=== PATIENT | male | born 1965 | race Caucasian/White ===

== ENCOUNTER 2018-07-04 13:17 | Emergency (ER) | payer OTHER ==
[~2018-07-04] VITALS: Ht 177.8 cm; Wt 138.3 kg
--- OUTSIDE RECORDS SUMMARY | ~2018-07-04 | XMS | Clinical Summary ---
Demographics + + + | Address | [address] | | | [place] [address] | + + + | Home Phone | | + + + | Preferred Language | Unknown | + + + | Marital Status | | + + + | Scientology Affiliation | Unknown | + + + | Race | Unknown | + + + | Ethnic Group | Unknown | + + + Author + + + | Author | [facility] | | | and [place] | + + + | Organization | [facility] | | | and [place] | + + + | Address | Unknown | + + + | Phone | Unavailable | + + + Support + + +---------+ + | Name | Relationship | Address | Phone | + + +---------+ + | JOSE BYRD | ECON | Unknown | | + + +---------+ + Care Team Providers + +------+ + | Care Heavy Machinery Assembler Name | Role | Phone | + +------+ + | Javi Soto DO | PP | | + +------+ + Allergies No Known Allergies Medications + + + +---------+------+------+-------+ | Medication | Sig | Dispensed | Refills | Star | End | Statu | | | | | | t | Date | s | | | | | | Date | | | + + + +---------+------+------+-------+ | ibuprofen (ADVIL, | Take 800-1,000 mg by | | 0 | | | Activ | | MOTRIN) 200 mg | mouth every 8 hours | | | | | e | | tablet | as needed for Pain. | | | | | | + + + +---------+------+------+-------+ | meloxicam (MOBIC) | Take 1 tablet by | 30 | 1 | 04/08 | | Activ | | 15 mg | mouth Daily as | tablet | | 10/28 | | e | | tabletIndications: | needed for Pain. | | | 19 | | | | Internal derangement | | | | | | | | of left knee | | | | | | | + + + +---------+------+------+-------+ Active Problems No known active problems Encounters +--------+ + + + + | Date | Type | Specialty | Care Team | Description | +--------+ + + + + | 05/13/ | Telephone | | Javi Soto | Knee Pain | | 2019 | | | E, DO | | +--------+ + + + + | 05/02/ | Telephone | | Javi Soto | Knee Pain (Status | | 2018 | | | E, DO | Update) | +--------+ + + + + | 04/26/ | Office | | Javi Soto | Internal derangement | | 2018 | Visit | | E, DO | of left knee | | | | | | (Primary Dx); Grief; | | | | | | Class 3 severe | | | | | | obesity with body | | | | | | mass index (BMI) of | | | | | | 45.0 to 49.9 in | | | | | | adult, unspecified | | | | | | obesity type, | | | | | | unspecified whether | | | | | | serious comorbidity | | | | | | present (HCC) | +--------+ + + + + | 04/22/ | Telephone | | Javi Soto | Appointment Question | | 2018 | | | E, DO | | +--------+ + + + + from Last 3 Months Immunizations + + + + | Name | Dates Previously Given | Next Due | + + + + | INFLUENZA PF 4Y OR | 01/11/2017 | | | >,QUAD DERIVED FROM | | | | TISS-CULT | | | + + + + | TDAP, (ADOL/ADULT) | 02/14/2016, 12/05/2013 | | + + + + Family History + + +------+ + | Medical History | Relation | Name | Comments | + + +------+ + | Heart disease | Maternal | | | | | Grandfath | | | | | er | | | + + +------+ + | Hypertension | Maternal | | | | | Grandfath | | | | | er | | | + + +------+ + | Emphysema | Mother | | | + + +------+ + | Tobacco Use | Mother | | | + + +------+ + + +------+ + + | Relation | Name | Status | Comments | + +------+ + + | Father | | | | + +------+ + + | Maternal Grandfather | | | | + +------+ + + | Maternal Grandmother | | | | + +------+ + + | Mother | | | | + +------+ + + | Paternal Grandfather | | | | + +------+ + + | Paternal Grandmother | | | | + +------+ + + Social History + +-------+ +--------+------+ | Tobacco Use | Types | Packs/Day | Years | Date | | | | | Used | | + +-------+ +--------+------+ | Never Smoker | | | | | + +-------+ +--------+------+ + +---+---+---+ | Smokeless Tobacco: | | | | | Never Used | | | | + +---+---+---+ + + | Tobacco Cessation: Counseling Given: No | + + + + +---------+ + | Alcohol Use | Drinks/We | oz/Week | Comments | | | ek | | | + + +---------+ + | No | 0 | 0.0 | | | | Glasses | | | | | of wine | | | | | 0 Cans of | | | | | beer 0 | | | | | Shots of | | | | | liquor 0 | | | | | Standard | | | | | drinks | | | | | or | | | | | equivalen | | | | | t | | | + + +---------+ + + + + | Sex Assigned at | Date Recorded | | | | + + + | Not on file | | + + + + + + + | Job Start Date | Occupation | Industry | + + + + | Not on file | Not on file | Not on file | + + + + + + + + | Travel History | Travel Start | Travel End | + + + + + + | No recent travel history available. | + + Last Filed Vital Signs + + + + | Vital Sign | Reading | Time Taken | + + + + | Blood Pressure | 148/88 | 04/26/2018 1057 PDT | + + + + | Pulse | 81 | 04/26/20187 PDT | + + + + | Temperature | - | - | + + + + | Respiratory Rate | 18 | 04/26/20181056 PDT | + + + + | Oxygen Saturation | 93% | 04/26/20181056 PDT | + + + + | Inhaled Oxygen | - | - | | Concentration | | | + + + + | Weight | 141.6 kg (312 lb 3.2 | 04/26/20181056 PDT | | | oz) | | + + + + | Height | 175 cm (5' 8.9") | 04/26/20181056 PDT | + + + + | Body Mass Index | 46.24 | 04/26/2018 1057 PDT | + + + + Plan of Treatment +--------+---------+ + + + | Date | Type | Specialty | Care Team | Description | +--------+---------+ + + + | 07/14/ | Office | | Javi Soto | | | 2019 | Visit | | DO [place] [address] | | | | | | [place] | | | | | | [address] | | | | | | [phone] | | | | | | | | +--------+---------+ + + + + + + + + | Health Maintenance | Due Date | Last Done | Comments | + + + + + | Colorectal Cancer | | | | | Screening | 6 | | | | (Colonoscopy) | | | | + + + + + | Vaccine: Zoster (1 | | | | | of 2) | 6 | | | + + + + + | Vaccine: Influenza | | 01/11/2017 | | | (Season Ended) | 9 | | | + + + + + | Primary Care | | 04/26/2018 | | | Outreach (Moderate | 0 | | | | Risk) | | | | + + + + + | Vaccine: | | 02/14/2016, 12/05/2013 | | | Dtap/Tdap/Td (3 - | 7 | | | | Td) | | | | + + + + + Results Not on filefrom Last 3 Months Insurance + +--------+ +--------+ +---------+------+ | Payer | Benefi | Subscriber | Effect | Phone | Address | Type | | | t Plan | ID | mari | | | | | | / | | Dates | | | | | | Group | | | | | | + +--------+ +--------+ +---------+------+ | [employer] | PACIFI | [id number] | 02/08/19 | [phone] | | PPO | | | [employer] | | 19-Pre | 2 | | | | | E | | sent | | | | | | FIRST | | | | | | | | CHOICE | | | | | | + +--------+ +--------+ +---------+------+ + +--------+ +--------+ + + | Guarantor Name | Accoun | Relation to | Date | Phone | Billing Address | | | t Type | Patient | of | | | | | | | | | | + +--------+ +--------+ + + | Radames Byrd | Person | Self [birth year] | | | freddy/Arnoldo | | 1966 | [phone] | [place] [address] | | | michael | | | 6 (Home) | | + +--------+ +--------+ + + Advance Directives Patient has advance care planning documents on file. For more information, please contact:[facility] [address]
--- OUTSIDE RECORDS SUMMARY | ~2018-07-04 | XMS | Encounter Summary ---
Demographics + + + | Address | [address] | | | [place] [address] | + + + | Home Phone | | + + + | Preferred Language | Unknown | + + + | Marital Status | | + + + | Jainism Affiliation | Unknown | + + + | Race | Unknown | + + + | Ethnic Group | Unknown | + + + Author + + + | Author | [facility] | | | and [place] | + + + | Organization | [facility] | | | and [...] Team Providers + +------+ + | Care Lens Coater Name | Role | Phone | + +------+ + | Javi Soto DO | PCP | | + +------+ + Reason for Visit + + + | Reason | Comments | + + + | Knee Pain | left | + + + Encounter Details +--------+---------+ + + + | Date | Type | Department | Care Team | Description | +--------+---------+ + + + | 04/26/ | Office | [facility] | Javi Soto | Internal derangement | | 2019 | Visit | [facility] | E, DO [address] | of left knee | | | | [facility] | [place] | (Primary Dx); Grief; | | | | [address] [place], | [address] | Class 3 severe | | | | [place] [address] | [phone] | obesity with body | | | | [phone] | | mass index (BMI) of | | | | | | 45.0 to 49.9 in | | | | | | adult, unspecified | | | | | | obesity type, | | | | | | unspecified whether | | | | | | serious comorbidity | | | | | | present (HCC) | +--------+---------+ + + + Social History + +-------+ +--------+------+ [...] recent travel history available. | + + documented as of this encounter Last Filed Vital Signs + + + + | Vital Sign | Reading | Time Taken | + + + + | Blood Pressure | 148/88 | 04/26/20181056 PDT | + + + + | Pulse | 81 | 04/26/20181056 PDT | + + + [...] | 141.6 kg (312 lb 3.2 | 04/26/2018 1057 PDT | | | oz) | | + + + + | Height | 175 cm (5' 8.9") | 04/26/2018 1057 PDT | + + + + | Body Mass Index | 46.24 | 04/26/2018 1057 PDT | + + + + documented in this encounter Patient Instructions Patient Instructions Viridiana Pérez - 04/26/2018 11:00 PDT-Wear knee brace when you are up and around, use ice 10 minuets at a time a couple times a day, and use crutches -Take Meloxicam 15 mg daily for pain -Take Tramadol 50-100 mg TID PRN -Letter for remain out of work until at least Wednesday05/02/2018 -Call me Wednesday05/02/2018 with update on how knee is feeling documented in this encounter Progress Notes Javi Soto DO - 04/26/2018 1100 PDT Patient ID: Radames Byrd is a 52 y.o. year old male Chief Complaint Patient presents with Knee Pain left Assessment: Internal derangement of left knee (Primary) - Lidocaine HCl; 5 mLs by Other route once. - Triamcinolone Acetonide; 1.5 mLs by Other route once. - Meloxicam; Take 1 tablet by mouth Daily as needed for Pain. Dispense: 30 tablet; Ref ill: 1 - traMADol HCl; Take 1-2 tablets by mouth 3 times daily as needed for up to 3 days. Di spense: 60 tablet; Refill: 1 Grief Class 3 severe obesity with body mass index (BMI) of 45.0 to 49.9 in adult, unspecified obe sity type, unspecified whether serious comorbidity present (HCC) Plan: -Wear knee brace when you are up and around, use ice 10 minuets at a time a couple times a day, and use crutches -Take Meloxicam 15 mg daily for pain -Take Tramadol 50-100 mg TID PRN -Letter for remain out of work until at least Wednesday05/02/2018 -Call me Wednesday05/02/2018 with update on how knee is feeling Subjective: JERARDO Pimentel presents to the clinic today regarding left knee pain. 1 month ago, he tweaked his left knee. The knee started getting better, but then he would m ove wrong and it would get worse. His left knee is messed up, he can hardly walk. Yesterday at work his knee he tried to jump into a vehicle off the left leg and that caused really bad pain. He is not able to wear a knee brace because of his job duties. He denies red or warmt h. He has noticed swelling. He has tried ice, heat which makes it feel better, rest is the b est but then he gets stiff. He is using Ibuprofen 800-1000 mg every 4-6 hours. It is not hel ping with pain PARQ Sterile technique No complications and tolerated well. 1.5cc (40mg) TAC [facility] [address]-6 LOT [id number] EXP 05/2019 and 5cc 1% lidocaine [facility] 9527-4832-03 LOT [id number] EXP 07/2019 injected into anterior medial joint line of the left knee. He recently lost his in November from colon cancer. He has a lot of built up anger. He would also like to talk about loosing weight. Current Outpatient Prescriptions Medication Sig Dispense Refill ibuprofen (ADVIL, MOTRIN) 200 mg tablet Take 800-1,000 mg by mouth every 8 hours as nee ded for Pain. meloxicam (MOBIC) 15 mg tablet Take 1 tablet by mouth Daily as needed for Pain. 30 tabl et 1 traMADol (ULTRAM) 50 mg tablet Take 1-2 tablets by mouth 3 times daily as needed for up to 3 days. 60 tablet 1 No current facility-administered medications for this visit. Review of Systems Musculoskeletal: Left knee pain, unable to bear weight on the left leg. Psychiatric/Behavioral: Recently lost his Objective: Vitals: BP 148/88 Comment: Large cuff, right arm | Pulse 81 Comment: Reg | Resp 18 | Ht 1.75 m (5' 8.9") | Wt (!) 141.6 kg (312 lb 3.2 oz) | SpO2 93% Comment: RA | BMI 46.24 kg/m Physical Exam Constitutional: He is oriented to person, place, and time. He appears well-developed and we ll-nourished. No distress. Eyes: EOM are normal. Cardiovascular: Normal rate, regular rhythm and normal heart sounds. Pulmonary/Chest: Effort normal and breath sounds normal. Musculoskeletal: Left knee - little swollen, warm to touch, negative apprehension, ligament laxity, with lat eral joint line has significant pain. Neurological: He is alert and oriented to person, place, and time. Psychiatric: He has a normal mood and affect. Tearful with conversation. Entered by Viridiana P[facility]rez [facility], acting as scribe for London Soto D.O. The documentation recorded by the scribe accurately reflects the service I personally perfo [facility] and the decisions made by me. documented in this encounter Plan of Treatment +--------+---------+ + + + | Date | Type | Specialty | Care Team | Description | +--------+---------+ + + + | 07/14/ | Office | Primary Care | Javi Soto | | | 2018 | Visit | | E, DO [address] | | | | | | [place] | | | | | | [address] | | | | | | [phone] | | | | | | | | +--------+---------+ + + + documented as of this encounter Visit Diagnoses + + | Diagnosis | + + | Internal derangement of left knee - Primary Unspecified internal derangement of knee | + + | Grief Adjustment disorder with depressed mood | + + | Class 3 severe obesity with body mass index (BMI) of 45.0 to 49.9 in adult, | | unspecified obesity type, unspecified whether serious comorbidity present (HCC) | + + documented in this encounter Administered Medications + +--------+ +-------+------+ + | Medication Order | MAR | Action | Dose | Rate | Site | | | Action | Date | | | | + +--------+ +-------+------+ + | lidocaine 1% injection 5 mL 5 | Given | 04/27/19 | 5 mLs | | Knee-Lef | | mL, Other, ONCE, 04/26/18 at | | 19 12:04 | | | t | | 1230, For 1 dose | | PDT | | | | + +--------+ +-------+------+ + +---+---+ | | | +---+---+ + +-------+ +-------+---+ + | triamcinolone acetonide | Given | 04/27/19 | 60 mg | | Knee-Lef | | (KENALOG-40) 40 mg/mL injection | | 19 12:04 | | | t | | 60 mg 60 mg, Other, ONCE, Tue | | PDT | | | | | 04/26/18 at 1230, For 1 dose, | | | | | | | Shake well. Not for IV use., | | | | | | + +-------+ +-------+---+ + +---+---+ | | | +---+---+ documented in this encounter
--- OUTSIDE RECORDS SUMMARY | ~2018-07-04 | XMS | Encounter Summary ---
Demographics + + + | Address | [address] | | | [place] [address] | + + + | Home Phone | | + + + | Preferred Language | Unknown | + + + | Marital Status | | + + + | Alevism Affiliation | Unknown | + + + | Race | Unknown | + + + | Ethnic Group | Unknown | + + + Author + + + | Author | [facility] | | | and [place] | + + + | Organization | [facility] | | | [...] Team Providers + +------+ + | Care Industrial Sewer Name | Role | Phone | + [...] | [address] [place], | [address] | Class 3 severe | | | | [place] [address] | [phone] | obesity with body | | | | [phone] | | mass index (BMI) of | [...] complications and tolerated well. 1.5cc (40mg) TAC [facility] [address]-4 LOT [id number] EXP 05/2019 and 5cc 1% lidocaine [facility] 2615-7791-74 LOT [id number] EXP 07/2019 injected into anterior medial joint [...] affect. Tearful with conversation. Entered by Viridiana Péerz [facility], acting as scribe for London Soto D.O. The documentation recorded by the scribe accurately reflects the service I personally perfo [facility] and the decisions made by me. documented [...] [place] | | | | | | [address] | | | | | | [phone] | | | | | | | [...]
--- OUTSIDE RECORDS SUMMARY | ~2018-07-04 | XMS | Encounter Summary ---
Demographics + + + | Address | [address] | | | [place] [address] | + + + | Home Phone | | + + + | Preferred Language | Unknown | + + + | Marital Status | | + + + | Presybeterian Affiliation | Unknown | + + + | Race | Unknown | + + + | Ethnic Group | Unknown | + + + Author + + + | Author | [facility] | | | and [place] | + + + | Organization | [facility] | | | [...] Team Providers + +------+ + | Care Maintenance Mechanic Elevators Name | Role | Phone | + +------+ + PCP | Unavailable | + +------+ + Reason for Visit + + + | Reason | Comments | + + + | Appointment Question | | + + + Encounter Details +--------+ + + + + | Date | Type | Department | Care Team | Description | +--------+ + + + + | 04/22/ | Telephone | [facility] | Javi Soto | Appointment Question | | 2019 | | [facility] | E, DO [address] | | | | | [facility] [address] | [place], [place] | | | | | [address] [place], | [address] | | | | | [place] [address] | [phone] | | | | | [phone] | | | +--------+ + + + + Social History + +-------+ +--------+------+ | Tobacco Use | Types | Packs/Day | Years | Date | | | | | Used | | + +-------+ +--------+------+ | Never Assessed | | | | | + +-------+ +--------+------+ + + + | Sex Assigned at [...] + + documented as of this encounter Plan of Treatment +--------+---------+ + + + | Date | Type | Specialty | Care Team | Description | +--------+---------+ + + + | 07/14/ | Office | Primary Care | Javi Soto | | | 2019 | Visit | | DO [place] [address] | | | | | | [place] | | | | | | [address] | | | | | | [phone] | | | | | | | | +--------+---------+ + + + documented as of this encounter Visit Diagnoses Not on filedocumented in this encounter"
--- OUTSIDE RECORDS SUMMARY | ~2018-07-04 | XMS | Encounter Summary ---
Demographics + + + | Address | [address] | | | [place] [address] | + + + | Home Phone | | + + + | Preferred Language | Unknown | + + + | Marital Status | | + + + | Latter-Day Affiliation | Unknown | + + + | Race | Unknown | + + + | Ethnic Group | Unknown | + + + Author + + + | Author | [facility] | | | and [place] | + + + | Organization | [facility] | | | and [place] [...] Team Providers + +------+ + | Care Tooling Engineering Tech Name | Role | Phone | + +------+ + | Javi Soto DO | PCP | | + +------+ + Reason for Visit + + + | Reason | Comments | + + + | Knee Pain | Status Update | + + + Encounter Details +--------+ + + + + | Date | Type | Department | Care Team | Description | +--------+ + + + + | 05/02/ | Telephone | [facility] | Javi Soto | Knee Pain (Status | | 2019 | | [facility] | E, DO [address] | Update) | | | | [facility] [address] | [place], [place] | | | | | [address] [place], | [address] | | | | | [place] [address] | [phone] | | | | | [phone] | | | +--------+ + + + [...] | | | + +---+---+---+ + + +---------+ + | Alcohol Use [...] | | 2019 | Visit | | [place] [address] | | | | | | [place] | | | | | | [address] | | | | | | [phone] | | | | | | | | +--------+---------+ + + + documented as of this encounter Visit Diagnoses Not on filedocumented in this encounter"
--- OUTSIDE RECORDS SUMMARY | ~2018-07-04 | XMS | Encounter Summary ---
Demographics + + + | Address | [address] | | | [place] [address] | + + + | Home Phone | | + + + | Preferred Language | Unknown | + + + | Marital Status | | + + + | Muslim Affiliation | Unknown | + + + | Race | Unknown | + + + | Ethnic Group | Unknown | + + + Author + + + | Author | [facility] | | | and [place] | + + + | Organization | [facility] | | | and [place] [...] Team Providers + +------+ + | Care Territory Sales Representative Name | Role | Phone | + +------+ + | Javi Soto DO | PCP | | + +------+ + Reason for Referral Evaluate & Treat (Routine) + + + + + + + | Status | Reason | Specialty | Diagnoses / | Referred By | Referred To | | | | | Procedures | Contact | Contact | + + + + + + + | Authorized | Specialty | Orthopedic | Diagnoses | Brittany, | Ciro | | | Services | Surgery | Internal | Javi Blake, | Wm Montana MD | | | Required | | derangement | DO [address] | [address] | | | | | of left knee | [address] [place] | [place] | | | | | | [place] | [place] | | | | | | [address] | [address] | | | | | | Phone: | Phone: | | | | | | [phone] | [phone] | | | | | | Fax: | Fax: | | | | | | [phone] | [phone] | + + + + + + + Reason for Visit + + + | Reason | Comments | + + + | Knee Pain | | + + + Encounter Details +--------+ + + + + | Date | Type | Department | Care Team | Description | +--------+ + + + + | 05/13/ | Telephone | [facility] | Javi Soto | Knee Pain | | 2019 | | [facility] | E, DO [address] | | | | | [facility] [address] | [place], [place] | | | | | [address] [place], | [address] | | | | | [place] [address] | [phone] | | | | | [phone] | | | +--------+ + + + [...] | Visit | | DO [address] [address] | | | | | | [place] | | | | | | [address] | | | | | | [phone] | | | | | | | | +--------+---------+ + + + + +--------+ + + | Name | Priori | Associated Diagnoses | Order Schedule | | | ty | | | + +--------+ + + | Orthopedic Surgery, External - | Routin | Internal | Ordered: 05/13/2018 | | AMB Referral | e | derangement of left | | | | | knee | | + +--------+ + + documented as of this encounter Visit Diagnoses + + | Diagnosis | + + | Internal derangement of left knee - Primary Unspecified internal derangement of knee | + + documented in this encounter"
--- OUTSIDE RECORDS SUMMARY | ~2018-07-04 | XMS | Encounter Summary ---
Demographics + + + | Address | [address] | | | [place] [address] | + + + | Home Phone | | + + + | Preferred Language | Unknown | + + + | Marital Status | | + + + | Synagogue Affiliation | Unknown | + + + | Race | Unknown | + + + | Ethnic Group | Unknown | + + + Author + + + | Author | [facility] | | | and [place] | + + + | Organization | [facility] | | | and [place] [...] Team Providers + +------+ + | Care Hatchery Supervisor Name | Role | Phone | + [...] | | [address] [place], | [address] | | | | | [place] [address] | [phone] | | | | | [phone] | | | +--------+ + + + [...] [place] | | | | | | [address] | | | | | | [phone] | | | | | | | | +--------+---------+ + + + documented as of this encounter Visit Diagnoses Not on filedocumented in this encounter"
--- OUTSIDE RECORDS SUMMARY | ~2018-07-04 | XMS | Encounter Summary ---
Demographics + + + | Address | [address] | | | [place] [address] | + + + | Home Phone | | + + + | Preferred Language | Unknown | + + + | Marital Status | | + + + | Roman Catholic Affiliation | Unknown | + + + | Race | Unknown | + + + | Ethnic Group | Unknown | + + + Author + + + | Author | [facility] | | | and [place] | + + + | Organization | [facility] | | | [...] Team Providers + +------+ + | Care Mine Surveyor Name | Role | Phone | + [...] (Status | | 2019 | | [facility] | E, DO [address] | Update) | | | | [facility] [address] | [place], [place] | | | | [address] [place], | [address] | | | | | [place] [address] | [phone] | | | | | [phone] | | | +--------+ + + + [...] [place] | | | | | | [address] | | | | | | [phone] | | | | | | | | +--------+---------+ + + + documented as of this encounter Visit Diagnoses Not on filedocumented in this encounter"
--- OUTSIDE RECORDS SUMMARY | ~2018-07-04 | XMS | Clinical Summary ---
Demographics + + + | Address | [address] | | | [place] [address] | + + + | Home Phone | | + + + | Preferred Language | Unknown | + + + | Marital Status | | + + + | Presybeterian Affiliation | Unknown | + + + | Race | Unknown | + + + | Ethnic Group | Unknown | + + + Author + + + | Author | [facility] | | | and [place] | + + + | Organization | [facility] | | | and [...] Team Providers + +------+ + | Care Space Physicist Name | Role | Phone | + [...] [place] | | | | | | [phone] | | | | | | [phone] | | | | | | | [...] +--------+ +---------+------+ | [employer] | PACIFI | [id number] | 02/08/19 | [phone] | | PPO [...] | | freddy/Arnoldo | | 1966 | [phone] | [place] [address] | | | michael | | | 6 (Home) | | + +--------+ +--------+ + + Advance Directives Patient has advance care planning documents on file. For more information, please contact:[facility] [address]
--- OUTSIDE RECORDS SUMMARY | ~2018-07-04 | XMS | Encounter Summary ---
Demographics + + + | Address | [address] | | | [place] [address] | + + + | Home Phone | | + + + | Preferred Language | Unknown | + + + | Marital Status | | + + + | Orthodoxy Affiliation | Unknown | + + + | Race | Unknown | + + + | Ethnic Group | Unknown | + + + Author + + + | Author | [facility] | | | and [place] | + + + | Organization | [facility] | | | and [...] Team Providers + +------+ + | Care Dialysis Clinical Manager Name | Role | Phone | + [...] [place] | | | | | | [address] | [address] | | | | | | Phone: | Phone: | | | | | | [phone] | [phone] | | | | | | Fax: | Fax: | | | | | | [phone] | [phone] | + + + + + + [...] Knee Pain | | 2019 | | [facility] | E, DO [address] | | | | | MEDICAL CLIN[address] | [place], [place] | | | | | [address] [place], | [address] | | | | | [place] [address] | [phone] | | | | | [phone] | | | +--------+ + + + [...] [place] | | | | | | [address] | | | | | | [phone] | | | | | | | [...]
[~2018-07-04 13:17] MED LIST: AUGMENTIN 875-1 EACH PO; DAY TIME COLD-296 ML PO; FLOMAX0.4 MG PO; GUAIFENESIN-CO118 ML PO; NORCO 10-325 T1 EACH PO; NORCO 5-325 TA1 EACH PO; PROVENTIL HFA6.7 GM INH; TIME COL PO; ZITHROMAX250 MG PO; ZITHROMAX500 MG PO
--- OUTSIDE RECORDS SUMMARY | 2018-07-04 13:20 | XMS ---
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 E.Maia VISIT COUNT (12 MO.) 2 [facility] Escobedo TOTAL 2 NOTE: Visits indicate total known visits. ED/UCC VISIT TRACKING (12 MO.) 07/04/2018 13:17 [facility] OR TYPE: Emergency COMPLAINT: - LEFT FLANK PAIN/NON INJURY 08/27/2017 08:33 [facility] TYPE: Emergency COMPLAINT: - LEFT FLANK PAIN/ABD PAIN DIAGNOSES: - Calculus of kidney - Unspecified abdominal pain - Essential (primary) hypertension INPATIENT VISIT TRACKING (12 MO.) No inpatient visits to display in this time frame [id number]
[2018-07-04] MEDS ORDERED: ULTRAM50 MG PO (13:30)
[2018-07-04] MEDS ORDERED: NAPROSYN500 MG PO (15:09)
[2018-07-04] MEDS ORDERED: CYCLOBENZAPRINE5 MG PO (15:09)
== END 2018-07-04 15:32 | disposition home or self-care (01) ==
LOC: ED 13:17
DX: S39.012A Strain of muscle, fascia and tendon of lower back, initial encounter (principal); Z90.49 Acquired absence of other specified parts of digestive tract; X58.XXXA Exposure to other specified factors, initial encounter
CPT/HCPCS: 74176; 80053; 81001; 83690; 85025; 96361; 96374; 96375; 96376; 99284-25; J1170; J1885; J2405; J7030

== ENCOUNTER 2020-02-12 05:35 | Day surgery (SDC) | payer OTHER ==
--- NOTE | 2020-02-06 10:43 | NUR ---
DOS: 02-12-20 PT HAS 7 STEPS TO ENTER THE HOME HAS STEP IN SHOWER AND SHOWER CHAIR HAS WALKER SON WITH HELP WITH TRANSPOTATION TO PHYSICAL THERAPY AND APPOINTMENTS
[~2020-02-12] VITALS: Ht 177.8 cm; Wt 143.2 kg
[~2020-02-12 05:35] MED LIST changes: +COZAAR50 MG PO; +CYCLOBENZAPRINE5 MG PO; +DICLOFENAC SODI75 MG PO; +FLUOXETINE HCL20 MG PO; +NAPROSYN500 MG PO; +TRAZODONE HCL50 MG PO; +ULTRAM50 MG PO
[2020-02-12] MEDS ORDERED: VITAMIN C500 M1 PO (06:11)
[2020-02-12] MEDS ORDERED: IRON160 MG PO (06:12)
--- NOTE | 2020-02-12 06:50 | NUR ---
THIS RN ASSISTS ALINE GIBBS CRNA WITH NERVE BLOCK ON LEFT LEG. PT ON 6L O2 VIA MASK WITH CONT PULSE OXIMETER IN PLACE. SATS GREATER THAN 94%. BED RAILS UP X2, CALL LIGHT WITHIN REACH.
[2020-02-12] MEDS ORDERED: XARELTO10 MG PO (08:46)
[2020-02-12] MEDS ORDERED: ASPIRIN EC325 MG PO (08:47)
[2020-02-12] MEDS ORDERED: ACETAMINOPHEN500 MG PO (08:47)
[2020-02-12] MEDS ORDERED: GABAPENTIN600 MG PO (08:47)
[2020-02-12] MEDS ORDERED: OXYCODONE HCL5 MG PO (08:47)
[2020-02-12] MEDS ORDERED: DICLOFENAC SODI75 MG PO (08:47)
[2020-02-12] MEDS ORDERED: HEALTHYLAX17 GM PO (08:48)
--- NOTE | 2020-02-12 09:14 | NUR ---
02/12/20 0914 Carolina Thibodeaux 0823 PT ARRIVED IN PACU SLEEPY WITH NO C/O'S. LIAM DRSG INTACT AND FLASHING GREEN LIGHT. ON QUE SET AT 4ML/HR. 904 CRYO CUFF PLACED ON L KNEE. 914 NO C/O'S.
--- NOTE | 2020-02-12 09:41 | NUR ---
PT ARRIVES TO DS TX RM FROM PACU DROWSY. PT AROUSES WITH VERBAL STIMULATION AND QUICKLY FALLS BACK TO SLEEP SNORING. CONT PULSE OXIMETER LEFT IN PLACE, SATS 90-92% ON RA. PT DENIES NAUSEA AND STATES PAIN 1-2/10 IN LEFT KNEE. PT PROVIDED ICED WATER. CALL LIGHT WITHIN REACH.
--- NOTE | 2020-02-12 10:35 | NUR ---
PT TOLERATES PUDDING AND CRACKERS WITH NO C/O NAUSEA. RR EVEN AND UNLABORED ON RA. PT STATES 5-6/10 PAIN IN LEFT KNEE "DULL AND CONSTANT" IN THE CENTER OF KNEE CAP. PT STATES THAT ALTERNATING FOOTPUMPS INCREASE PAIN. MEDICATION GIVEN, SEE EMAR. PLAN TO NOTIFY MD. CALL LIGHT WITHIN REACH. PT ENC TO USE CALL LIGHT WITH URGE TO VOID.
--- NOTE | 2020-02-12 11:00 | NUR ---
11OO: DELIA LIVE TRUCK OPERATOR RN NOTIFIED OF PT STATUS. ORDERS FOR DR. ARAUJO TO INCREASE ON-Q PUMP AND RE-BLOCK PT. THIS RN INCREASES ON-Q PUMP TO 8 AND NOTIFIED GAME ARTIST OF STATUS. JOHN HERMOSILLO, RN ASSISTS THIS RN WITH PT UP FOR THE FIRST TIME OUT OF BED. PT SITS AT SIDE OF BED PRIOR TO STANDING, DENIES DIZZINESS OR NAUSEA WITH POSITION CHANGE. FWW PROVIDED AND PT EDUCATED ABOUT AMBULATION AFTER TKA. PT HAS STEADY GAIT TO BATHROOM, ABLE TO VOID QS WITH NO PROBLEMS. PT BACK TO BED, FOOTPUMPS AND CRYO CUFF BACK IN PLACE AND FUNCTIONING. ICED WATER REFILLED AND PT GIVEN TV GUIDE, CALL LIGHT IN PT HAND. LUNCH ORDERED FOR PT.
--- NOTE | 2020-02-12 11:49 | NUR ---
DR. ARAUJO IS UPDATED ON PT'S STATUS, PAIN HAS IMPROVED, HE HAS BEEN ABLE TO GET UP AND USE THE RESTROOM. HE IS AGREEABLE TO DISCHARGING THE PT IF HE MEETS CRITERIA AFTER WORKING WITH PHYSICAL THERAPY.
--- NOTE | 2020-02-12 11:51 | NUR ---
ON Q PUMP DECREASED TO [address] ARAUJO. CANDELARIO MIRLEES IN TO CHECK ON PT.
--- NOTE | 2020-02-12 12:15 | NUR ---
LUNCH DELIVERED TO PT ROOM. PT TOLERATES 100% OF LUNCH WITH NO C/O NAUSEA. WHEN ASKED ABOUT PAIN PT STATES, "IT IS MUCH BETTER NOW." HAJA WITH PHYSICAL THERAPY PLANS TO WORK WITH PT AROUND 1300.
--- NOTE | 2020-02-12 13:09 | OR ---
[facility] [address] [place], [place] [address] Signed DATE OF OPERATION: 02/12/2020 SURGEON: Nicole Tanner MD PREOPERATIVE DIAGNOSIS: Severe degenerative joint disease of left knee. POSTOPERATIVE DIAGNOSIS: Severe degenerative joint disease of left knee. PROCEDURE PERFORMED: Left total knee arthroplasty with Bang. ONCOLOGY RADIATION PHYSICIAN: She Porter PA-C. She was present and critical for all portions of procedure. ANESTHESIA: Spinal. BLOOD LOSS: 200 mL. IMPLANTS: Decherd Triathlon size 5, 9 mm insert and 35 patella. BRIEF HISTORY: Margarito is a 54-year-old gentleman with pain in his knee, nonresponsive to all nonoperative treatments. Risks and benefits of operative intervention were discussed with him. He elected to proceed. DESCRIPTION OF PROCEDURE: Once consent was obtained, he was taken to the operating room after adequate anesthesia, he was placed on operating table, all downside pressure points were well padded. The left hip was placed on a bump and the leg was prepped and draped in a standard sterile fashion. The knee was approached through standard anterior incision, taken through skin, subcutaneous tissue and skin flaps were developed. A mid vastus approach was undertaken and the capsule were split distally and brought anteriorly into the mid vastus region split proximally. The patella was then mobilized laterally. The infrapatellar fat pad was excised. The MCL was elevated of a sleeve around the Electronically Signed By: NICOLE TANNER MD 02/12/20 1309 PATIENT NAME: ROSEMARY HOUGH OPERATIVE REPORT DATE OF : 65 REPORT #: [id number] PHYSICIAN: NICOLE TANNER MD PCP: EBONY MAKI DO REPORT IS CONFIDENTIAL AND NOT TO BE RELEASED WITHOUT AUTHORIZATION [facility] [address] [place], [place] [address] Signed posteromedial corner. The ACL was transected. PCL was found to be intact. The anterior horns of menisci were transected. All the medial meniscus was pretty much absent. The knee was then flexed and the Schanz pins for the computer tracker for the Bang were placed in the medial femoral condyles as was the checkpoint. The two guide pins were placed in the anterior medial tibia one handsbreadth below the tibial tubercle. The leg was then registered with computer followed by the fine anatomic points of the knee. Once this was completed, varus-valgus testing was undertaken to give us the ligamentous balance. We then adjusted the prosthesis position on the computer slightly. The robot was then brought in. The straight cuts were made starting with the tibia with care taken to protect all soft tissue. The 2 angle cuts were then made and bone pieces were removed. The remaining osteophytes were removed. The trials were then positioned. Knee was taken through range of motion and found to be stable both to palpation and to the computer. The patella was cut sized and drilled for a 35 patella. The two distal femoral drill holes were made and the tibia was finished using the keel punch followed by the drill holes bone was good and we did plan a noncemented prosthesis. Once this was accomplished, the wound was copiously irrigated with normal saline. The tibia was impacted in position first followed by the polyethylene. The femur was then impacted. The knee was extended and nicely loaded. The patella was clamped into position and the periarticular soft tissues were then injected with 100 mL ropivacaine and Toradol mixture. The knee was taken through range of motion and again, it found to be stable. The trackers were then removed. The On-Q pain pump was then percutaneously placed into the adductor canal from the suprapatellar pouch. The arthrotomy was then closed using #2 Stratafix, followed by #1 Stratafix, the subcutaneous tissue and a 3-0 Monocryl subcutaneous closure for the skin with Steri-Strips. The wound was dressed with a LIAM wound VAC dressing and an Jamal wrap. He was awakened, taken to the recovery room in satisfactory condition. All sponge, needle, and instrument counts were correct. Nicole Tanner MD BA/MODL /[id number] Copies: Electronically Signed By: NICOLE TANNER MD 02/12/20 1309 PATIENT NAME: ROSEMARY HOUGH OPERATIVE REPORT DATE OF : 65 REPORT #: [id number] PHYSICIAN: NICOLE TANNER MD PCP: EBONY MAKI DO REPORT IS CONFIDENTIAL AND NOT TO BE RELEASED WITHOUT AUTHORIZATION [address] [address] Signed ~ Electronically Signed By: NICOLE TANNER MD 02/12/20 1309 PATIENT NAME: GIANLUCAROSEMARY ELIO OPERATIVE REPORT DATE OF : 65 REPORT #: [id number] PHYSICIAN: NICOLE TANNER MD PCP: EBONY MAKI DO REPORT IS CONFIDENTIAL AND NOT TO BE RELEASED WITHOUT AUTHORIZATION
--- NOTE | 2020-02-12 13:14 | NUR ---
HAJA WITH PHYSICAL THERAPY IN TO PT ROOM.
--- NOTE | 2020-02-12 13:27 | NUR ---
PT OFF OF FLOOR VIA WC WITH PHYSICAL THERAPY TO MED SURG PT ROOM.
--- NOTE | 2020-02-12 13:45 | NUR ---
PT ARRIVES BACK FROM MED SURG FLOOR VIA WC WITH PHYSICAL THERAPY. PT TO BATHROOM, VOIDS QS. BACK TO BED WITH CRYO CUFF IN PLACE. PHYSICAL THERAPY STATES PT IS SAFE TO DC HOME WHEN READY.
--- NOTE | 2020-02-12 14:30 | NUR ---
1430: THIS RN CONTACTS PT SONTABAHTA TO COME IN FOR DC INSTRUCTIONS AND SAFE RIDE HOME. SAFEWAY IS CONTACTED TO SEE IF/WHEN PT MEDICATIONS WILL BE READY. 1510: DC INSTRUCTIONS PRESENTED TO BOTH PT AND SON, ALL QUESTIONS ADDRESSED. PT AWARE OF MEDICATIONS ESCRIPTED TO SAFEWAY PHARAMCY. PT DC FROM DS TX RM VIA WC TO SON'S VEHICLE AT MAIN HOSPITAL ENTRANCE TO HOME.
== END 2020-02-12 15:20 | disposition home or self-care (01) ==
LOC: DS 05:35
PROVIDERS: ATTEND Specialist
PROC: 3E0T3BZ Introduction of Anesthetic Agent into Peripheral Nerves and Plexi, Percutaneous Approach (ICD-10-PCS; 2020-02-12)
PROC: 0SRD0JA Replacement of Left Knee Joint with Synthetic Substitute, Uncemented, Open Approach (ICD-10-PCS; principal; 2020-02-12 06:45)
DX: M17.12 Unilateral primary osteoarthritis, left knee (principal); G89.18 Other acute postprocedural pain; I10 Essential (primary) hypertension; F32.9 Major depressive disorder, single episode, unspecified; F41.9 Anxiety disorder, unspecified; F41.0 Panic disorder [episodic paroxysmal anxiety]; E66.01 Morbid (severe) obesity due to excess calories; G89.29 Other chronic pain; M54.5 Low back pain; G47.33 Obstructive sleep apnea (adult) (pediatric); Z79.891 Long term (current) use of opiate analgesic; Z79.899 Other long term (current) drug therapy; Z90.49 Acquired absence of other specified parts of digestive tract; Z68.41 Body mass index [BMI] 40.0-44.9, adult; Z01.812 Encounter for preprocedural laboratory examination; Z20.828 Contact with and (suspected) exposure to other viral communicable diseases
CPT/HCPCS: 0055T; 27446; 01402; 64447; 64450; 76942; 97110; 97161; C1776; J0690; J0735; J1100; J1885; J2001; J2250; J2405; J2704; J2765; J3010; J7030; J7040; J7121

== ENCOUNTER 2020-04-13 11:24 | Emergency (ER) | payer OTHER ==
[~2020-04-13] VITALS: Ht 177.8 cm; Wt 142.9 kg
[~2020-04-13 11:24] MED LIST changes: +ACETAMINOPHEN500 MG PO; +ASPIRIN EC325 MG PO; +GABAPENTIN600 MG PO; +HEALTHYLAX17 GM PO; +IRON160 MG PO; +OXYCODONE HCL5 MG PO; +VITAMIN C500 M1 PO; +XARELTO10 MG PO
--- OUTSIDE RECORDS SUMMARY | 2020-04-13 11:28 | XMS ---
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 EIdris VISIT COUNT (12 MO.) 1 [facility] TOTAL 1 NOTE: Visits indicate total known visits. ED/UCC VISIT TRACKING (12 MO.) 04/13/2020 11:25 [facility] [place] TYPE: Emergency COMPLAINT: - ABD PAIN INPATIENT VISIT TRACKING (12 MO.) No inpatient visits to display in this time frame [id number]
== END 2020-04-13 14:36 | disposition home or self-care (01) ==
LOC: ED 11:24
DX: K42.9 Umbilical hernia without obstruction or gangrene (principal); G47.30 Sleep apnea, unspecified; Z79.899 Other long term (current) drug therapy
CPT/HCPCS: 74177; 80053; 81001; 83605; 83690; 85025; 99284-25; Q9967

== ENCOUNTER 2020-06-28 08:51 | Day surgery (SDC) | payer OTHER ==
[~2020-06-28] VITALS: Ht 177.8 cm; Wt 139.0 kg
--- NOTE | 2020-06-28 12:04 | NUR ---
06/28/20 1204 Bette Ramirez 1159: PT ARRIVES TO PACU FOR RECOVERY. RESONDS TO VERBAL STIMULUS. VSS, RESP EVEN AND UNLABORED. ARRIVES ON 8L OXYGEN VIA FACEMASK. DECREASED TO 6L. O2 SAT STABLE >98%. DRESSING C/D/I. ICE TO INCISIONAL SITE AND PILLOW PROVIDED. 1204: HOB ELEVATED FOR AIRWAY CLEARANCE
--- NOTE | 2020-06-28 12:55 | NUR ---
1245 PT RETURNED TO ROOM 4 PT SITTING IN SEMI FOWLERS AND SIPPING WATER. PT DENIES PAIN AND NAUSEA. CALL LIGHT WITHIN REACH. PLAN OF CARE DISCUSSED.
--- NOTE | 2020-06-28 13:13 | OR ---
[facility] [address] [place], [place] [address] Signed DATE OF OPERATION: 06/28/2020 SURGEON: Hemant Patterson MD PREOPERATIVE DIAGNOSIS: Reducible symptomatic umbilical hernia (12-15 mm). POSTOPERATIVE DIAGNOSIS: Reducible symptomatic umbilical hernia (12-15 mm). PROCEDURE: Primary umbilical herniorrhaphy with intraabdominal Ventralex mesh (6.4 cm). ESTIMATED BLOOD LOSS: None. 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 He had noticed that he was having pain and swelling at his umbilicus. He said it was painful, but generally he could push it back inside. One day it was very painful and very concerning. He went to the emergency room. CT scan showed his umbilical hernia with fat, but no intestine. The ER physician was able to reduce it with quite a bit of effort. He has been back to work, but was asked to see me with respect to the above. He said he does not want to miss work as he just had his left knee replaced and he has missed plenty work in that regard already. In the office, I was able to at least partially reduce the hernia. I had given him a booklet on hernias and we looked at that together in detail. He understands the nature of an umbilical hernia along with difference between the primary suture repair and a mesh repair. He also understands expected intraop and postop course. We did review the risks including, but not limited to bleeding, infection, scarring, change in contour of the skin, damage to bowel, infection of mesh requiring removal, recurrent hernias and chronic pain. He had expressed understanding and wished to proceed. DESCRIPTION OF PROCEDURE: I met with Rosemary in our day surgery area. We both agreed on the umbilicus and marked that appropriately. After this, Rosemary was taken in the operating room and placed in the supine position under general endotracheal tube anesthesia. He was given preoperative antibiotics along with subcutaneous heparin. SCDs were utilized. He was then prepped and draped in the usual sterile fashion. A standard infraumbilical transverse incision was made and carried down and around the umbilicus bluntly and with Electronically Signed By: HEMANT PATTERSON MD 06/28/20 1313 PATIENT NAME: ROSEMARY HOUGH OPERATIVE REPORT DATE OF : 65 REPORT #: [id number] PHYSICIAN: HEMANT PATTERSON MD PCP: EBONY MAKI DO REPORT IS CONFIDENTIAL AND NOT TO BE RELEASED WITHOUT AUTHORIZATION [facility] [address] [place], [place] [address] Signed the cautery. The umbilicus was from the fascial defect with the help of cautery. The hernia sac was excised and passed off the field. The omentum was easily reduced in the abdomen. The fascial defect was 12-15 mm in diameter. We therefore chose our round 6.4 cm Ventralex mesh. We placed that in the abdomen, brought up, flushed against the posterior abdominal wall. The fascial defect was closed transversely with a running #1 Prolene suture. Several passes of the suture went through the tab on the mesh to help hold it in place. The tab was cut and flushed with the abdominal wall. Local anesthetic was then injected in the abdominal wall and subcutaneous tissues. The wound was irrigated and suctioned out until clear. The umbilical skin was held down to the midline fascia with an interrupted 2-0 PDS suture. The dermis was reapproximated with interrupted 3-0 subcuticular Monocryl sutures. 5-0 fast absorbing plain gut suture was used to bring the skin edges together. Dry gauze and tape were then applied. Rosemary was then awakened from his anesthesia, extubated in the OR, and taken to the recovery room in stable condition. Hemant Patterson MD ALB/MODL /[id number] cc: DO Hemant Arcos MD Copies: EBONY MAKI ANDREW L MD ~ Electronically Signed By: HEMANT PATTERSON MD 06/28/20 1313 PATIENT NAME: ROSEMARY HOUGH OPERATIVE REPORT DATE OF : 65 REPORT #: [id number] PHYSICIAN: HEMANT PATTERSON MD PCP: EBONY MAKI DO REPORT IS CONFIDENTIAL AND NOT TO BE RELEASED WITHOUT AUTHORIZATION
--- NOTE | 2020-06-28 13:23 | NUR ---
O2 REMOVED AND PT ENCOURAGED TO COUGH AND DEEP BREATHE. PT RESTING IN BED.
--- NOTE | 2020-06-28 13:50 | NUR ---
PT UP TO BATHROOM AND STEADY ON HIS FEET. PT FRIEND AT BEDSIDE. PT DENIES CONCERNS AND VERBALIZED READINESS TO GO HOME. PT REPORTS VOIDING LARGE AMOUNT WITH NO PROBLEMS.
--- NOTE | 2020-06-28 14:12 | NUR ---
1400 PT REPORTS PAIN 4/10 AND PAIN MEDICATION GIVEN. PT REPORTS TAKING THIS PAIN MEDICATION FOR HIS KNEE AT HOME. PT EATING JELLO AND SIPPING WATER WITH NO CONCERNS.
--- NOTE | 2020-06-28 14:45 | NUR ---
PT DC WITH SON AND ALL PAPERWORK AND RX GIVEN. PT DRESSED HIMSELF AND REPORTS TOLERABLE PAIN. VSS. ALL [id number] GIVEN.
== END 2020-06-28 14:45 | disposition home or self-care (01) ==
LOC: DS 08:51
PROVIDERS: ATTEND Colon & Rectal Surgery
PROC: 0WUF0JZ Supplement Abdominal Wall with Synthetic Substitute, Open Approach (ICD-10-PCS; principal; 2020-06-28 10:45)
DX: K42.9 Umbilical hernia without obstruction or gangrene (principal); I10 Essential (primary) hypertension; E66.9 Obesity, unspecified; G47.33 Obstructive sleep apnea (adult) (pediatric); M19.90 Unspecified osteoarthritis, unspecified site; Z90.49 Acquired absence of other specified parts of digestive tract; Z96.652 Presence of left artificial knee joint; Z79.899 Other long term (current) drug therapy; Z68.41 Body mass index [BMI] 40.0-44.9, adult
CPT/HCPCS: 00750; C1781; J0690; J1100; J1644; J1885; J2001; J2405; J2704; J3010; J7121

== ENCOUNTER 2021-09-12 10:14 | Emergency (ER) | payer OTHER ==
[~2021-09-12] VITALS: Ht 177.8 cm; Wt 146.6 kg
[~2021-09-12 10:14] MED LIST changes: +CHLORTHALIDONE25 MG PO; +GABAPENTIN300 MG; +HYDROCODON-ACE1 EAC8 PO; +LOSARTAN POTASS25 MG PO; +METFORMIN HCL500 M1 PO; +PRAMIPEXOLE0.125 MG PO
--- OUTSIDE RECORDS SUMMARY | 2021-09-12 10:18 | XMS ---
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 [facility] MO[facility] TOTAL 3 NOTE: Visits indicate total known visits. ED/UCC VISIT TRACKING (12 MO.) 09/12/2021 10:16 [facility] TYPE: Emergency COMPLAINT: - R KNEE PAIN [facility]2020 17[facility] DIAGNOSES: - poss metal object in left eye - Foreign body on external eye, part unspecified, left eye, initial encounter - Foreign Body in Eye 12/27/2020 20:16 [facility] TYPE: Emergency COMPLAINT: - LT EYE, FOREIGN OBJECT INPATIENT VISIT TRACKING (12 MO.) No inpatient visits to display in this time frame [id number]
[2021-09-12] MEDS ORDERED: ROSUVASTATIN CAL5 MG PO (12:10)
[2021-09-12] MEDS ORDERED: CELECOXIB200 MG PO (12:10)
[2021-09-12] MEDS ORDERED: PIOGLITAZONE HC15 MG PO (12:10)
[2021-09-12] MEDS ORDERED: HYDROCODON-ACE1 EAC8 PO (13:18)
== END 2021-09-12 13:47 | disposition home or self-care (01) ==
LOC: ED 10:14
DX: M23.91 Unspecified internal derangement of right knee (principal); G47.30 Sleep apnea, unspecified; I10 Essential (primary) hypertension; Z79.899 Other long term (current) drug therapy; Z79.84 Long term (current) use of oral hypoglycemic drugs
CPT/HCPCS: 73560; 99283-25

== ENCOUNTER 2022-03-30 06:43 | Day surgery (SDC) | payer OTHER ==
[~2022-03-30] VITALS: Ht 177.8 cm; Wt 151.3 kg
--- NOTE | ~2022-03-30 | OR ---
[facility] [address] [facility] [place], [place] [address] Draft DATE OF OPERATION: 03/30/2022 SURGEON: Nicole Tanner MD PREOPERATIVE DIAGNOSIS: Severe DJD, right knee. POSTOPERATIVE DIAGNOSIS: Severe DJD, right knee. PROCEDURE PERFORMED: Right total knee arthroplasty with Bang. RUBBER CHEMIST: She Porter PA-C. She was present and critical for all portions of the procedure. ANESTHESIA: General. BLOOD LOSS: 225 mL. TOURNIQUET TIME: Zero. IMPLANTS: Julissa Triathlon size 6 femur, 5 tibia, 9 mm polyethylene and 32 mm patella. BRIEF HISTORY: Rosemary is a 56-year-old gentleman with severe pain in his knee. He has undergone prior left total knee and wished to proceed with the right. Risks and benefits of operative treatment were discussed with him and he elected to proceed. DESCRIPTION OF PROCEDURE: Once consent was obtained, he was taken to the operating room. After adequate anesthesia, he was placed on the operating table. All downside pressure points were well padded and hip bump was placed. The leg was then prepped and draped in a standard sterile fashion. Standard anterior approach through midline incision was carried through the skin and subcutaneous tissue. A mid vastus arthrotomy was performed and the PATIENT NAME: ROSEMARY HOUGH OPERATIVE REPORT DATE OF : 65 REPORT #: [id number] PHYSICIAN: NICOLE TANNER MD PCP: SHELDON RENNER MD REPORT IS CONFIDENTIAL AND NOT TO BE RELEASED WITHOUT AUTHORIZATION [facility] [address] [place], [place] [address] Draft infrapatellar fat pad was excised. The MCL was elevated with a sleeve around the posteromedial corner. All bleeders were cauterized as we went. The anterior horns of the menisci were transected as was the ACL. PCL was found to be intact. The navigation guide was placed in the medial femoral condyle and proximal tibia and the leg was registered with the computer. The fine anatomic points of the knee were then registered and the varus and valgus balancing was undertaken. A slight adjustments were made to the prosthesis putting it into a little bit more varus. The robot was then brought in and the 4 straight cut and 2 angle cuts were made with care taken to protect the patellar tendon and MCL. The bony remnants were removed as were any remaining osteophytes. The posterior osteophytes were removed off the femur, but no release was performed. The trials were then positioned. Knee was taken through range of motion and found to be stable from 0 to 125 degrees of flexion, which was thigh heel impingement. The patella was cut sized and drilled for a 32 asymmetric patella. The distal femoral drill holes were finished and the proximal tibial keel punch was finished. The bone was irrigated with Irrisept and the prosthesis was obtained. The tibia was impacted in position first followed by the polyethylene and then the femur was impacted. The knee was extended and nicely loaded. The patella was clamped into position. The clamp was removed. Knee was taken through range of motion with excellent patellar alignment. The On-Q pain pump was percutaneously placed into the adductor canal. The knee was further irrigated with two bottles of Irrisept and 1 L of normal saline. The periarticular soft tissue was injected with 100 mL of ropivacaine and Toradol mixture. The arthrotomy was then closed using #2 Stratafix, subcutaneous tissue with 0 Quill and the skin with 3-0 Stratafix and LiquiBand. The wound was dressed with an Aquacel dressing, ABDs, and Jamal wrap. He tolerated the procedure well. All sponge, needle, and instrument counts were correct. Nicole Tanner MD BA/MODL /[id number] Copies: ~ PATIENT NAME: ROSEMARY HOUGH OPERATIVE REPORT DATE OF : 65 REPORT #: [id number] PHYSICIAN: NICOLE TANNER MD PCP: SHELDON RENNER MD REPORT IS CONFIDENTIAL AND NOT TO BE RELEASED WITHOUT AUTHORIZATION
[~2022-03-30 06:43] MED LIST changes: +CELECOXIB200 MG PO; +PIOGLITAZONE HC15 MG PO; +ROSUVASTATIN CAL5 MG PO
[2022-03-30] MEDS ORDERED: XARELTO10 MG PO (10:35)
[2022-03-30] MEDS ORDERED: SENNA LAX8.6 MG PO (10:36)
[2022-03-30] MEDS ORDERED: OXYCODONE HCL5 MG PO (10:36)
--- NOTE | 2022-03-30 10:46 | NUR ---
03/30/22 1046 Margarita Golden 1039 PATIENT ARRIVES TO PACU UNRESPONSIVE TO PAIN, ORAL AIRWAY IN PLACE. NEEDS OCCASIONAL JAW THURST BY RN. RESP EVEN AND UNLABORED WITH INTERVENTION. MASK AT 6 LITERS, SATS >95%. 1045 PATIENT MOANING WHEN RIGHTKNEE IS MOVED TO PLACE CRYO CUFF. OPENS EYES. FOLLOWS COMMANDS TO OPEN MOUTH, ORAL AIRWAY REMOVED. RESP EVEN AND UNLABORED, MASK CONTINUES AT 6 LITERS. FOLLOWS COMMANDS TO DEEP BREATHE, RESTING WITH EYES CLOSED WHEN NOT STIMULATED.
--- NOTE | 2022-03-30 11:52 | NUR ---
1135: PT ARRIVES TO DS RM 4 VIA STRETCHER AWAKE. PT RATES PAIN 6/10 IN DISTAL RIGHT KNEE. PT DENIES ANY NAUSEA AND REQUESTS WATER. PERSONAL CPAP IN PLACE ON 3L, SATS 96%. LIGHTS DIMMED AND CALL LIGHT WITHIN REACH. DC CRITERIA EXPLAINED.
--- NOTE | 2022-03-30 12:33 | NUR ---
PT RESTING IN BED EATING APPLE SAUCE AND PUDDING.
--- NOTE | 2022-03-30 13:30 | NUR ---
[id number]: VERBAL ORDERS FROM DR. ARAUJO TO TURN ON-Q PUMP FROM 6 TO 8 TO MANAGE PAIN DUE TO RECEIVING GENERAL ANESTHESIA AND NOT SPINAL. [id number]: ON-Q PUMP INCREASED PER VERBAL ORDERS. PT REMOVES CPAP MACHINE AT THIS TIME AND IS PROVIDED APPLESAUCE AND PUDDING. CONT PULSE OXIMETER LEFT IN PLACE, PT ABLE TO MAINTAIN SATS GREATER THAN 90% ON RA. [id number]: PT RATES PAIN 3/10 AND THAT INCREASE OF ON-Q PUMP "HELPED A LOT." PT STATES HE IS FEELING SLEEPY AND SATS RANGING FROM 86-90% WITH NO STIMULATION, ABLE TO INCREASE SATS TO 97% WHEN CONVERSING. PT ENCOURAGED TO USE PERSONAL CPAP MACHINE IF HE WOULD LIKE TO TAKE A NAP. CONT PULSE OXIMETER REMAINS IN PLACE WITH CURTAIN OPEN WITH CLEAR VISIBILITY OF PT/MONITOR. CALL LIGHT WITHIN REACH.
--- NOTE | 2022-03-30 14:23 | NUR ---
PT BACK FROM PHYSCIAL THERAPY AT THIS TIME.
--- NOTE | 2022-03-30 14:31 | NUR ---
PT VERBALIZES PAIN IN RIGHT KNEE FROM PHYSICAL THERAPY EXCERCISES, SEE EMAR. LUNCH ORDERED FOR PT. SON AT BEDSIDE.
--- NOTE | 2022-03-30 16:37 | NUR ---
1520: PT UP TO BATHROOM WITH RN ASSIST AND USE OF WALKER, ABLE TO VOID 300 MLS CONCENTRATED YELLOW URINE AND BACK TO DS RM 4. [id number]: PT TOLERATES LUNCH WITH NO C/O NAUSEA. PT STATES OXYCODONE WAS HELPFUL FOR PAIN AND RATES 4-5/10. DR. ARAUJO NOTIFIED OF PT STATUS WHO AGREES THAT PT IS SAFE TO DC HOME. ON-Q PUMP DECREASED TO [address] ORDERS. PT DRESSES SELF AND OPENS CURTAIN WHEN FINISHED. DC INSTRUCTIONS PRESENTED VERBALLY AND WRITTEN WITH ALL QUESTIONS ANSWERED. SON RETRIEVES PERSONAL CAR AND PT DC FROM DS RM 4 VIA WC TO SON HOME.
== END 2022-03-30 16:09 | disposition home or self-care (01) ==
LOC: DS 06:43
PROVIDERS: ATTEND Specialist
PROC: 0SRC0JZ Replacement of Right Knee Joint with Synthetic Substitute, Open Approach (ICD-10-PCS; principal; 2022-03-30 09:20)
DX: M17.11 Unilateral primary osteoarthritis, right knee (principal); I10 Essential (primary) hypertension; F32.A Depression, unspecified; E11.9 Type 2 diabetes mellitus without complications; Z79.84 Long term (current) use of oral hypoglycemic drugs
CPT/HCPCS: J0330; J0690; J1885; J2250; J2704; J2795; J3010; J7121

== ENCOUNTER 2022-11-18 16:21 | Emergency (ER) | payer OTHER ==
[~2022-11-18] VITALS: Ht 177.8 cm; Wt 143.3 kg
[~2022-11-18 16:21] MED LIST changes: +BAYER CHEWABLE81 MG PO; +MECLIZINE HCL25 MG PO; +SENNA LAX8.6 MG PO; +TRULICITY0.75 MG/0. SQ; +VIAGRA50 MG PO
--- OUTSIDE RECORDS SUMMARY | 2022-11-18 16:32 | XMS ---
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 Nika VISIT COUNT (12 MO.) 2 [facility] Escobedo TOTAL 2 NOTE: Visits indicate total known visits. ED/UCC VISIT TRACKING (12 MO.) 11/18/2022 16:22 [facility]f [place] TYPE: Emergency COMPLAINT: - DIZZINESS 09/18/2022 20:52 [facility] [place] TYPE: Emergency COMPLAINT: - DIZZINESS DIAGNOSES: - Allergy status to other drugs, medicaments and biological substances - Benign paroxysmal vertigo, left ear - Dizziness and giddiness - Elevated blood-pressure reading, without diagnosis of hypertension - shelter (current) use of oral hypoglycemic drugs - Occlusion and stenosis of left vertebral artery - Occlusion and stenosis of unspecified cerebral artery - Other fpc (current) drug therapy - Type 2 diabetes mellitus without complications - Vestibular neuronitis, left ear INPATIENT VISIT TRACKING (12 MO.) No inpatient visits to display in this time frame [email or web address]
[2022-11-18 19:40] LABS: BASOPHILS 0.5 % (0-2); EOSINOPHILS 1.3 % (0-6); HEMATOCRIT 41.9 % (35.0-50.0); HEMOGLOBIN 13.9 g/dL (12.0-18.0); MCH 28.8 (27-36); MCHC 33.1 g/dl (30-36); MCV 87.2 fl (81-99); MONOCYTES 7.4 % (0-12); NEUTROPHILS 73.8 % (39-80); PLATELET COUNT 217 K/uL (140-440); RBC 4.81 M/ul (4.3-5.7); RDW 14.3 (10.5-15.0)
[2022-11-18 19:53] LABS: ALBUMIN 3.6 g/dL (3.4-5.0); ALBUMIN/GLOBULIN RATIO 0.97 (1.1-2.4); ANION GAP 12.3 (7-21); BILIRUBIN, TOTAL 0.5 ng/dL (0.2-1.0); BUN/CREATININE RATIO 14.42 (6.0-28.6); CALCIUM 8.9 mg/dL (8.5-10.1); CREATININE, SERUM 1.04 mg/dL (0.70-1.30); MAGNESIUM 1.8 mg/dL (1.8-2.4); POTASSIUM 4.3 mmol/L (3.5-5.1); PROTEIN, TOTAL 7.3 g/dL (6.4-8.2)
[2022-11-18] MEDS ORDERED: MECLIZINE HCL25 MG PO (20:37)
[2022-11-18 20:47] VITALS: BP 159/91
[2022-11-19] MEDS ORDERED: ATIVAN1 MG PO (08:59)
[2022-11-19] MEDS ORDERED: ONDANSETRON ODT8 MG PO (08:59)
== END 2022-11-18 20:53 | disposition home or self-care (01) ==
LOC: ED 16:21
PROVIDERS: Family Medicine
DX: R42 Dizziness and giddiness (principal); E11.9 Type 2 diabetes mellitus without complications; R03.0 Elevated blood-pressure reading, without diagnosis of hypertension; Z88.8 Allergy status to other drugs, medicaments and biological substances; Z79.899 Other long term (current) drug therapy; Z79.84 Long term (current) use of oral hypoglycemic drugs
CPT/HCPCS: 36415; 80053; 83735; 85025; 99284

== ENCOUNTER 2022-11-19 07:16 | Emergency (ER) | payer OTHER ==
[~2022-11-19] VITALS: Ht 177.8 cm; Wt 143.3 kg
--- OUTSIDE RECORDS SUMMARY | 2022-11-19 07:20 | XMS ---
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 Nika VISIT COUNT (12 MO.) 3 [facility] TOTAL 3 NOTE: Visits indicate total known visits. ED/UCC VISIT TRACKING (12 MO.) 11/19/2022 07:17 [facility] Graf [place] TYPE: Emergency COMPLAINT: - DIZZY, EYES BOUNCY, NAUSEA 11/18/2022 16:22 [facility] Graf [place] TYPE: Emergency COMPLAINT: - DIZZINESS 09/18/2022 20:52 [facility] Graf [place] TYPE: Emergency COMPLAINT: - DIZZINESS DIAGNOSES: - Allergy status to other drugs, medicaments and biological substances - Benign paroxysmal vertigo, left ear - Dizziness and giddiness - Elevated blood-pressure reading, without diagnosis of hypertension - [facility] (current) use of oral hypoglycemic drugs - Occlusion and stenosis of left vertebral artery - Occlusion and stenosis of unspecified cerebral artery - Other bed bug exterminator (current) drug therapy - Type 2 diabetes mellitus without complications - Vestibular neuronitis, left ear INPATIENT VISIT TRACKING (12 MO.) No inpatient visits to display in this time frame [email or web address]
[2022-11-19 08:14] LABS: HEMATOCRIT 42.3 % (35.0-50.0); HEMOGLOBIN 14.4 g/dL (12.0-18.0); MCH 29.3 (27-36); MCHC 33.9 g/dl (30-36); MCV 86.3 fl (81-99); PLATELET COUNT 273 K/uL (140-440); RBC 4.91 M/ul (4.3-5.7); RDW 14.3 (10.5-15.0)
[2022-11-19 08:33] LABS: EOSINOPHILS, MANUAL DIFF 1; LYMPHOCYTES, MANUAL DIFF 16; MONOCYTES, MANUAL DIFF 2; NEUTROPHILS, MANUAL DIFF 81
[2022-11-19 08:42] LABS: ALBUMIN 3.4 g/dL (3.4-5.0); ALBUMIN/GLOBULIN RATIO 0.94 (1.1-2.4); BILIRUBIN, TOTAL 0.6 ng/dL (0.2-1.0); BUN/CREATININE RATIO 13.86 (6.0-28.6); CALCIUM 8.8 mg/dL (8.5-10.1); CREATININE, SERUM 1.01 mg/dL (0.70-1.30)
[2022-11-19] MEDS ORDERED: ONDANSETRON ODT8 MG PO (08:59)
[2022-11-19] MEDS ORDERED: ATIVAN1 MG PO (08:59)
[2022-11-19 09:19] VITALS: BP 141/78
== END 2022-11-19 09:17 | disposition home or self-care (01) ==
LOC: ED 07:16
PROVIDERS: Emergency Medicine
DX: R42 Dizziness and giddiness (principal); E11.9 Type 2 diabetes mellitus without complications; G47.30 Sleep apnea, unspecified; I10 Essential (primary) hypertension; Z88.8 Allergy status to other drugs, medicaments and biological substances
CPT/HCPCS: 36415; 80053; 85025; 96374; 96375; 99283-25; J2060; J2405; J7030